=== PATIENT | male | born 1980 | race Caucasian/White ===

== ENCOUNTER 2019-12-01 07:20 | Emergency (ER) | payer MEDICARE, MEDICAID ==
[~2019-12-01] VITALS: Ht 182.8 cm; Wt 98.6 kg
[2019-12-01] MEDS ORDERED: morphine INJ 10 MG/ML 1ML (SYR OR VIAL) IVP STA (07:39)
[2019-12-01] MEDS ORDERED: LACTATED RINGERS 1,000 ML IV ONE (07:41)
[2019-12-01] MEDS ORDERED: LIDOCAINE UROJET 2% GEL 10 ML PKG TOP ONE (07:45)
[2019-12-01] MEDS ORDERED: ONDANSETRON 4 MG/2 ML (SDV) Z0FRAN IVP ONE ×2 (07:45→08:00)
[2019-12-01] MEDS ORDERED: PANTOPRAZOLE 40 MG (PROTONIX) VIAL IV ONE (07:45)
--- NOTE | 2019-12-01 07:51 | ED Abdominal Pain ---
General Chief Complaint: - Urinary Stated Complaint: ABD PAIN Nursing Triage Note: AMB TO ED REPORTS 2 DAYS AGO WAS SEEN AT [facility] FOR URINARY RETENTION. CATH PLACED. LAST NIGHT PATIENT STATES IT CAME HALF WAY OUT AND HE PULLED IT THE REST OF THE WAY OUT. Sepsis Screen: No Definite Risk Source of Information: Patient Exam Limitations: No Limitations History of Present Illness Date Seen by Provider: Dec 01, 2019 Time Seen by Provider: 07:28 Initial Comments Patient presents ER by private conveyance from a family member's home where he was staying the night it is anticipated going to graduation today but has had progressively worsening abdominal pain left side for the past 2 days. He is having nausea without vomiting. No diarrhea or bloody stools but he has a history of presumed Crohn's disease being worked up by gastroenterology at [facility]. His primary care is at [facility]. He completed a course of steroids last week. He also has chronic neck and back problems for which his primary care doctor gave him a prescription for hydrocodone recently. After he took the hydrocodone he states he had worsening prostatism with urinary retention only able to pass about 2 ounces of urine. He already has a history of prostatism and has had partial resection by urology at [facility]. He went to the ER and they placed a Morris catheter and leg bag. He's had to use straight catheter's for several years now because of UTI secondary to urinary retention. He came to [place] for a graduation ceremony today and when he was sleeping on a couch the accident dislodged the 14 Persian Morris catheter. He says he feels like his bladder is distended and full of urine but is also having 8 out of 10 pain just left of his umbilicus which she associates with his Crohn's. He says the diagnosis is not certain of the urologist thinks that his Crohn's based on endoscopy. He is not on antibiotics or steroids at this time. No fevers chills cough shortness of breath. He's had appendectomy and single orchiectomy in the past. Patient states fentanyl does not help but he has tolerated morphine and Dilaudid works very well. Allergies and Home Medications Allergies Coded Allergies: Penicillins (Verified Allergy, Unknown, 12/01/19) fentanyl (Verified Allergy, Unknown, 12/01/19) sulfamethoxazole (Verified Allergy, Unknown, 12/01/19) tramadol (Verified Allergy, Unknown, 12/01/19) trimethoprim (Verified Allergy, Unknown, 12/01/19) Home Medications Loperamide HCl 2 Mg Tablet, 2 MG PO Q4H PRN for DIARRHEA Prescribed by: RHETT IBARRA on 12/01/19 0824 Ondansetron 4 Mg Tab.rapdis, 4 MG PO Q6H PRN for NAUSEA/VOMITING Prescribed by: RHETT IBARRA on 12/01/19 0824 Tamsulosin HCl 0.4 Mg Cap, 0.4 MG PO DAILY Prescribed by: RHETT IBARRA on 12/01/19 08 Patient Home Medication List Home Medication List Reviewed: Yes Review of Systems Review of Systems Constitutional: No chills, No diaphoresis EENTM: No Blurred Vision, No Double Vision Respiratory: Denies Cough, Denies Shortness of Air Cardiovascular: Denies Chest Pain, Denies Lightheadedness Gastrointestinal: Denies Constipated, Denies Vomiting Genitourinary: Denies Discharge, Denies Drainage Musculoskeletal: see HPI, back pain; No joint pain Skin: No pruritus, No rash Psychiatric/Neurological: Denies Headache, Denies Numbness All Other Systems Reviewed Negative Unless Noted: Yes Past Irfbzir-Rduqjq-Peiufl Hx Patient Social History Alcohol Use: Denies Use Recreational Drug Use: No Recent Foreign Travel: No Contact w/Someone Who Travel: No Recent Infectious Disease Expo: No Physical Exam Vital Signs Vital Signs - First Documented 12/01/19 07:24 Temp 36.7 Pulse 87 Resp 18 B/P (MAP) 149/80 (103) Pulse Ox 100 O2 Delivery Room Air Capillary Refill : Less Than 3 Seconds Height/Weight/BMI Height: '" Weight: lbs. oz. kg; 29.00 BMI Method: General Appearance: WD/WN, mild distress HEENT: PERRL/EOMI, pharynx normal Neck: full range of motion, normal inspection Respiratory: lungs clear, normal breath sounds, no respiratory distress, no accessory muscle use Cardiovascular: normal peripheral pulses, regular rate, rhythm Peripheral Pulses: 2+ Radial Pulses (R), 2+ Radial Pulses (L) Gastrointestinal: normal bowel sounds, soft, tenderness (epigastric and left side upper quadrant) Extremities: normal range of motion, normal inspection, normal capillary refill Neurologic/Psychiatric: alert, normal mood/affect, oriented x 3 Skin: normal color, warm/dry Progress/Results/Core Measures Results/Orders Lab Results Laboratory Tests Test 12/01/19 07:43 12/01/19 08:11 Range/Units White Blood Count 8.5 4.3-11.0 10^3/uL Red Blood Count 4.90 4.35-5.85 10^6/uL Hemoglobin 14.7 13.3-17.7 G/DL Hematocrit 42 40-54 % Mean Corpuscular Volume 86 80-99 FL Mean Corpuscular Hemoglobin 30 25-34 PG Mean Corpuscular Hemoglobin Concent 35 32-36 G/DL Red Cell Distribution Width 14.7 H 10.0-14.5 % Platelet Count 303 130-400 10^3/uL Mean Platelet Volume 9.9 7.4-10.4 FL Neutrophils (%) (Auto) 58 42-75 % Lymphocytes (%) (Auto) 31 12-44 % Monocytes (%) (Auto) 10 0-12 % Eosinophils (%) (Auto) 1 0-10 % Basophils (%) (Auto) 0 0-10 % Neutrophils # (Auto) 4.9 1.8-7.8 X 10^3 Lymphocytes # (Auto) 2.6 1.0-4.0 X 10^3 Monocytes # (Auto) 0.8 0.0-1.0 X 10^3 Eosinophils # (Auto) 0.1 0.0-0.3 10^3/uL Basophils # (Auto) 0.0 0.0-0.1 10^3/uL Erythrocyte Sedimentation Rate 11 0-15 MM/HR Sodium Level 140 135-145 MMOL/L Potassium Level 3.8 3.6-5.0 MMOL/L Chloride Level 109 H 98-107 MMOL/L Carbon Dioxide Level 19 L 21-32 MMOL/L Anion Gap 12 5-14 MMOL/L Blood Urea Nitrogen 11 7-18 MG/DL Creatinine 1.27 0.60-1.30 MG/DL Estimat Glomerular Filtration Rate > 60 BUN/Creatinine Ratio 9 Glucose Level 104 70-105 MG/DL Calcium Level 9.2 8.5-10.1 MG/DL Corrected Calcium 9.0 8.5-10.1 MG/DL Total Bilirubin 0.5 0.1-1.0 MG/DL Aspartate Amino Transf (AST/SGOT) 35 H 5-34 U/L Alanine Aminotransferase (ALT/SGPT) 45 0-55 U/L Alkaline Phosphatase 85 40-136 U/L C-Reactive Protein High Sensitivity 0.31 0.00-0.50 MG/DL Total Protein 7.4 6.4-8.2 GM/DL Albumin 4.3 3.2-4.5 GM/DL Urine Color YELLOW Urine Clarity CLEAR Urine pH 5.5 5-9 Urine Specific N[place]rop >=1.030 1.016-1.022 Urine Protein NEGATIVE NEGATIVE Urine Glucose (UA) NEGATIVE NEGATIVE Urine Ketones NEGATIVE NEGATIVE Urine Nitrite NEGATIVE NEGATIVE Urine Bilirubin NEGATIVE NEGATIVE Urine Urobilinogen 0.2 < = 1.0 MG/DL Urine Leukocyte Esterase NEGATIVE NEGATIVE Urine RBC (Auto) NEGATIVE NEGATIVE Urine RBC NONE /HPF Urine WBC 2-5 /HPF Urine Crystals NONE /LPF Urine Bacteria MODERATE H /HPF Urine Casts NONE /LPF Urine Mucus LARGE H /LPF Urine Culture Indicated NO Urine Opiates Screen POSITIVE H NEGATIVE Urine Oxycodone Screen NEGATIVE NEGATIVE Urine Methadone Screen NEGATIVE NEGATIVE Urine Propoxyphene Screen NEGATIVE NEGATIVE Urine Barbiturates Screen NEGATIVE NEGATIVE Ur Tricyclic Antidepressants Screen NEGATIVE NEGATIVE Urine Phencyclidine Screen NEGATIVE NEGATIVE Urine Amphetamines Screen NEGATIVE NEGATIVE Urine Methamphetamines Screen NEGATIVE NEGATIVE Urine Benzodiazepines Screen POSITIVE H NEGATIVE Urine Cocaine Screen NEGATIVE NEGATIVE Urine Cannabinoids Screen POSITIVE H NEGATIVE My Orders Orders - RHETT IBARRA Ua Culture If Indicated (12/01/19 07:23) Cbc With Automated Diff (12/01/19 07:39) Comprehensive Metabolic Panel (12/01/19 07:39) Hs C Reactive Protein (12/01/19 07:39) Erythrocyte Sedimentation Rate (12/01/19 07:39) Catheter(Urinary) Insert & Ass 03,15 (12/01/19 07:39) Lidocaine 2% (Urojet) (Xylocaine Urojet) (12/01/19 07:45) Morphine Injection (Morphine Injection (12/01/19 07:39) Pantoprazole Injection (Protonix Injecti (12/01/19 07:45) Ct Abdomen/Pelvis W (12/01/19 07:39) Ed Iv/Invasive Line Start (12/01/19 07:41) Lactated Ringers (Lr 1000 Ml Iv Solution (12/01/19 07:41) Ondansetron Injection (Zofran Injectio (12/01/19 07:45) Ondansetron Injection (Zofran Injectio (12/01/19 08:00) Iohexol Injection (Omnipaque 350 Mg/Ml 1 (12/01/19 08:15) Ns (Ivpb) (Sodium Chloride 0.9% Ivpb Bag (12/01/19 08:15) Catheter(Urinary) Insert & Ass 03,15 (12/01/19 08:18) Ua Culture If Indicated (12/01/19 08:18) Drug Screen Stat (Urine) (12/01/19 08:33) Dicyclomine Capsule (Bentyl Capsule) (12/01/19 09:15) Methylprednisolone Sod Succ (Solu-Medrol (12/01/19 09:15) Medications Given in ED Current Medications Medications Dose Ordered Sig/Joshua Route Start Time Stop Time Status Last Admin Dose Admin Iohexol 100 ml ONCE ONCE IV 12/01/19 08:15 12/01/19 08:16 DC 12/01/19 08:29 100 ML Lactated Ringer's 1,000 ml @ 0 mls/hr Q0M ONCE IV 12/01/19 07:41 12/01/19 07:42 DC 12/01/19 07:59 1,000 MLS/HR Lidocaine HCl 10 ml ONCE ONCE TOP 12/01/19 07:45 12/01/19 07:46 DC 12/01/19 07:59 10 ML Ondansetron HCl 8 mg ONCE ONCE IVP 12/01/19 08:00 12/01/19 08:01 DC 12/01/19 07:55 8 MG Pantoprazole 40 mg ONCE ONCE IV 12/01/19 07:45 12/01/19 07:46 DC 12/01/19 07:57 40 MG Sodium Chloride 80 ml ONCE ONCE IV 12/01/19 08:15 12/01/19 08:16 DC 12/01/19 08:29 80 ML Vital Signs/I&O 12/01/19 07:24 Temp 36.7 Pulse 87 Resp 18 B/P (MAP) 149/80 (103) Pulse Ox 100 O2 Delivery Room Air Blood Pressure Mean: 103 Progress Progress Note #1: Time: 07:54 Progress Note IV established, 1 L of lactated Ringer's and plan to get a scan of his abdomen and pelvis. He has aseptic vital signs but because of his abdominal tenderness and history of Crohn's want to rule out abscess or fistula or other worrisome progressive disease. His urinary retention has prompted us to place a Morris catheter to drain his bladder and will probably set him up with a leg bag. We'll use Urojet. Morphine 4 mg and Zofran 8 mg as well as pantoprazole 40 mg for his symptoms. He he denies chronic opiate use. He says he's tolerated morphine in the past. Plan to also provide him with a couple weeks prescription for Flomax. Prescription monitoring software online demonstrates the patient has been prescribed 6 rounds of 60 tablets of hydrocodone 5/325 from the same provider. He is also had 7 separate scripts filled for alprazolam 0.5 mg 90 tablets each from the same provider. Before that he has multiple scripts for hydrocodone and other benzos from different providers filled at different pharmacies. This is inconsistent with the story he gave us initially where he implied that he rarely takes hydrocodone and just recently discovered that taking hydrocodone causes his prostate swell worsening his urinary retention. After placing Morris catheter we obtained return of about 50 cc of clear yellow urine. Progress Note #2: Time: 09:09 Progress Note Patient states he has had 4 episodes of diarrhea already this morning. Plan to give him Bentyl as well as a prescription for loperamide try. Plan to start him on some steroids for what looks like focal, patchy inflammatory appearance on CT. Very well could be consistent with Crohn so we'll put him on some budesonide have her follow-up with primary care. Mild ileus. Liquid diet would be appropriate for now. Should be tolerable to treat at home. Diagnostic Imaging Diagonstic Imaging: CT Plain Films/CT/US/NM/MRI: abdomen, pelvis Comments NAME: [facility] REC#: [id number] PT STATUS: REG ER : 1980 PHYSICIAN: RHETT IBARRA MD ADMIT DATE: 12/01/19/ER Draft Date of Exam:12/01/19 CT ABDOMEN/PELVIS W PROCEDURE: CT abdomen and pelvis with contrast. TECHNIQUE: Multiple contiguous axial images were obtained through the abdomen and pelvis after administration of intravenous contrast. Auto Exposure Controls were utilized during the CT exam to meet ALARA standards for radiation dose reduction. INDICATION: Abdominal pain, Crohn's disease. COMPARISON: None available. FINDINGS: The visualized lung bases are clear. Diffusely decreased density of the liver, consistent with fatty infiltration of the liver. Focal fatty sparing is noted adjacent to the gallbladder fossa. Liver is otherwise unremarkable. Spleen is unremarkable. Splenule is present. The adrenal glands are unremarkable. The gallbladder is unremarkable. The pancreas is unremarkable. The bilateral kidneys and ureters are unremarkable. No aneurysmal dilatation of the abdominal aorta. Morris catheter is present within a decompressed urinary bladder. Gas is present within the urinary bladder. Mural thickening of the ascending and descending colon is noted extending into the proximal sigmoid colon. Very minimal fat stranding is suggested associated with the rectosigmoid junction. The terminal ileum demonstrates mild mural thickening. No evidence of acute appendicitis. Loops of proximal small bowel are mildly dilated measuring up to 3.5 cm within the central upper abdomen. This is associated with mild mural thickening. No discrete transition point. No significant adenopathy, free air, or free fluid within the abdomen or pelvis. Stimulator device is present with the battery pack overlying the right gluteal region with leads extending into the chest though not completely included within the [id number]. No acute osseous abnormality. IMPRESSION: Scattered regions of mural thickening involving the colon, terminal ileum, and proximal jejunum. Findings are favored related to reported history of Crohn's disease. Mildly focally dilated loops of small bowel within the midline upper abdomen without discrete transition point. This may relate to focal ileus secondary to inflammation. Fatty infiltration of the liver. Morris catheter within a decompressed urinary bladder. Dictated on workstation # [id number] Dict: 12/01/19 0836 Trans: 12/01/19 0847 [id number] Interpreted by: BIBI CURRY MD Electronically signed by: Reviewed: Reviewed by Me Departure Impression Primary Impression: Crohn's colitis Qualified Codes: K50.10 - Crohn's disease of large intestine without complications Additional Impressions: Ileus Urinary retention due to benign prostatic hyperplasia Disposition: HOME, SELF-CARE Condition: Stable Departure-Patient Inst. Decision time for Depature: 09:23 Referrals: NO,LOCAL PHYSICIAN (PCP/Family) Primary Care Physician Patient Instructions: Crohn's Disease (DC), Urinary Retention Add. Discharge Instructions: A Morris Catheter was placed for your urinary retention. Plan to follow up with primary care in the next week to have it removed. Alternatively you may follow- up with your urologist. You appear to be having a Crohn's colitis episode. We were going to start you on budesonide once daily to help get it back in remission. If you have nausea you may take ondansetron one tablet under the tongue every 6 hours as needed. If you have pain you may use the pain medications prescribed to use as ordered. If you have diarrhea and/or pain you may try the Bentyl 20 mg every 6 hours as needed. You may also use loperamide 2 mg every 4 hours as necessary for loose, watery stools. Until your pain and nausea improve you should stick to a liquid diet and only slowly increase that to soft foods as your symptoms improve. Start taking Flomax once a day at night until after the catheter is out. All discharge instructions reviewed with patient and/or family. Voiced understanding. Scripts Dicyclomine HCl (Dicyclomine HCl) 20 Mg Tablet 20 MG PO Q6H PRN for PAIN-BREAKTHROUGH for 7 Days, #30 TAB 0 Refills Prov: RHETT IBARRA 12/01/19 Budesonide (Budesonide EC) 3 Mg Capdr...er 3 MG PO DAILY for 14 Days, #14 CAP 0 Refills Prov: RHETT IBARRA 12/01/19 Loperamide HCl (Loperamide) 2 Mg Tablet 2 MG PO Q4H PRN for DIARRHEA for 7 Days, #30 TAB 0 Refills Prov: RHETT IBARRA 12/01/19 Ondansetron (Ondansetron Odt) 4 Mg Tab.rapdis 4 MG PO Q6H PRN for NAUSEA/VOMITING, #20 TAB 0 Refills Prov: RHETT IBARRA 12/01/19 Tamsulosin HCl (Flomax) 0.4 Mg Cap 0.4 MG PO DAILY for 14 Days, #14 CAP 0 Refills Prov: RHETT IBARRA 12/01/19 RHETT IBARRA Dec 01, 2019 07:51
[2019-12-01 07:54] LABS: BASOPHILS % (AUTO) 0 % (0-10); EOSINOPHILS # (AUTO) 0.1 10^3/uL (0.0-0.3); EOSINOPHILS % (AUTO) 1 % (0-10); HEMATOCRIT 42 % (40-54); HEMOGLOBIN 14.7 G/DL (13.3-17.7); LYMPHOCYTES # (AUTO) 2.6 X 10^3 (1.0-4.0); LYMPHOCYTES % (AUTO) 31 % (12-44); MEAN CORPUSCULAR HEMOGLOBIN 30 PG (25-34); MEAN CORPUSCULAR HGB CONC 35 G/DL (32-36); MEAN CORPUSCULAR VOLUME 86 FL (80-99); MEAN PLATELET VOLUME 9.9 FL (7.4-10.4); MONOCYTES # (AUTO) 0.8 X 10^3 (0.0-1.0); MONOCYTES % (AUTO) 10 % (0-12); NEUTROPHILS # (AUTO) 4.9 X 10^3 (1.8-7.8); NEUTROPHILS % (AUTO) 58 % (42-75); PLATELET COUNT 303 10^3/uL (130-400); RED CELL DISTRIBUTION WIDTH 14.7 % (10.0-14.5); WHITE BLOOD COUNT 8.5 10^3/uL (4.3-11.0)
[2019-12-01 08:03] LABS: ALBUMIN 4.3 GM/DL (3.2-4.5); CHLORIDE 109 MMOL/L (98-107); POTASSIUM 3.8 MMOL/L (3.6-5.0); SODIUM 140 MMOL/L (135-145)
[2019-12-01 08:04] LABS: CALCIUM 9.2 MG/DL (8.5-10.1)
[2019-12-01 08:06] LABS: GLUCOSE 104 MG/DL (70-105); TOTAL PROTEIN 7.4 GM/DL (6.4-8.2)
[2019-12-01 08:07] LABS: BILIRUBIN,TOTAL 0.5 MG/DL (0.1-1.0); CARBON DIOXIDE 19 MMOL/L (21-32)
[2019-12-01 08:09] LABS: ALKALINE PHOSPHATASE 85 U/L (40-136)
[2019-12-01 08:10] LABS: CREATININE SERUM 1.27 MG/DL (0.60-1.30); GFR ESTIMATED > 60
[2019-12-01 08:11] LABS: BUN/CREATININE RATIO 9
[2019-12-01 08:12] LABS: ALANINE AMINOTRANSFERASE 45 U/L (0-55)
[2019-12-01] MEDS ORDERED: NS 100 ML (IVPB) BAG IV ONE (08:15)
[2019-12-01] MEDS ORDERED: IOHEXOL 350 MG/ML 100 ML (OMNIPAQUE 350) VIAL IV ONE (08:15)
[2019-12-01 08:17] LABS: BILIRUBIN,URINE NEGATIVE (NEGATIVE); CLARITY,URINE CLEAR; COLOR,URINE YELLOW; GLUCOSE, URINE (UA) NEGATIVE (NEGATIVE); KETONES,URINE NEGATIVE (NEGATIVE); LEUKOCYTE ESTERASE ,URINE NEGATIVE (NEGATIVE); NITRITE,URINE NEGATIVE (NEGATIVE); PH,URINE 5.5 (5-9); PROTEIN,URINE NEGATIVE (NEGATIVE)
[2019-12-01] MEDS ORDERED: TMSL.4C PO (08:24)
[2019-12-01] MEDS ORDERED: ONDA4TAB11 PO (08:24)
[2019-12-01] MEDS ORDERED: LOPE2TAB34 PO (08:24)
[2019-12-01 08:33] LABS: ERYTHROCYTE SEDIMENTATION RATE 11 MM/HR (0-15)
[2019-12-01] MEDS ORDERED: HYDR-83 (08:44)
[2019-12-01] MEDS ORDERED: CITA10TA7 (08:44)
[2019-12-01] MEDS ORDERED: ALPR0.5T7 (08:44)
--- NOTE | 2019-12-01 08:47 | Diagnostic Imaging Report ---
PROCEDURE: CT abdomen and pelvis with contrast. TECHNIQUE: Multiple contiguous axial images were obtained through the abdomen and pelvis after administration of intravenous contrast. Auto Exposure Controls were utilized during the CT exam to meet ALARA standards for radiation dose reduction. INDICATION: Abdominal pain, Crohn's disease. COMPARISON: None available. FINDINGS: The visualized lung bases are clear. Diffusely decreased density of the liver, consistent with fatty infiltration of the liver. Focal fatty sparing is noted adjacent to the gallbladder fossa. Liver is otherwise unremarkable. Spleen is unremarkable. Splenule is present. The adrenal glands are unremarkable. The gallbladder is unremarkable. The pancreas is unremarkable. The bilateral kidneys and ureters are unremarkable. No aneurysmal dilatation of the abdominal aorta. Morris catheter is present within a decompressed urinary bladder. Gas is present within the urinary bladder. Mural thickening of the ascending and descending colon is noted extending into the proximal sigmoid colon. Very minimal fat stranding is suggested associated with the rectosigmoid junction. The terminal ileum demonstrates mild mural thickening. No evidence of acute appendicitis. Loops of proximal small bowel are mildly dilated measuring up to 3.5 cm within the central upper abdomen. This is associated with mild mural thickening. No discrete transition point. No significant adenopathy, free air, or free fluid within the abdomen or pelvis. Stimulator device is present with the battery pack overlying the right gluteal region with leads extending into the chest though not completely included within the [id number]. No acute osseous abnormality. IMPRESSION: Scattered regions of mural thickening involving the colon, terminal ileum, and proximal jejunum. Findings are favored related to reported history of Crohn's disease. Mildly focally dilated loops of small bowel within the midline upper abdomen without discrete transition point. This may relate to focal ileus secondary to inflammation. Fatty infiltration of the liver. Morris catheter within a decompressed urinary bladder. Dictated by: Dictated on workstation # [id number]
[2019-12-01 08:52] LABS: AMPHETAMINE SCREEN, URINE NEGATIVE (NEGATIVE); BENZODIAZEPINES SCREEN URINE POSITIVE (NEGATIVE); CANNABINOID SCREEN, URINE POSITIVE (NEGATIVE); COCAINE SCREEN URINE NEGATIVE (NEGATIVE); METHAMPHETAMINE SCREEN URINE S NEGATIVE (NEGATIVE)
[2019-12-01 08:53] LABS: BARBITURATE SCREEN URINE NEGATIVE (NEGATIVE); METHADONE STAT NEGATIVE (NEGATIVE); OPIATE SCREEN URINE POSITIVE (NEGATIVE); OXYCODONE STAT NEGATIVE (NEGATIVE); PROPOXYPHENE STAT NEGATIVE (NEGATIVE); TRICYCLIC ANTIDEPRESSANTS SCRE NEGATIVE (NEGATIVE)
--- NOTE | 2019-12-01 08:53 | NUR ---
CALLED TO ROOM PATIENT REQUESTION MORE PAIN MEDS. FLUIDS INFUSING WITHOUT PROBLEM. PACK DRAINING WITOUT PROBLEM.
[2019-12-01 08:56] LABS: BACTERIA,URINE MODERATE /HPF
[2019-12-01] MEDS ORDERED: DICYCLOMINE 10 MG (BENTYL) CAP PO ONE (09:15)
[2019-12-01] MEDS ORDERED: methylPREDNISolone 125 MG (Solu-MEDROL) VIAL IVP ONE (09:15)
[2019-12-01] MEDS ORDERED: DICY20TA10 PO (09:33)
[2019-12-01] MEDS ORDERED: BUDE3CAP5 PO (09:33)
--- NOTE | 2019-12-01 09:54 | NUR ---
PATIENT DECIDED HE WANTED PACK REMOVED ON DISCHARGE APX 200CC IN PACK BAG. PACK REMOVED WITHOUT PROBLEM.
--- NOTE | 2019-12-01 09:57 | NUR ---
DR IBARRA ORDERD BENADRYL BEFORE DISCHARGE.
[2019-12-01] MEDS ORDERED: diphenhydrAMINE 25 MG TAB (BENADRYL) PO ONE (10:00)
[2019-12-01 10:03] VITALS: BP 129/96
== END 2019-12-01 10:03 | disposition home or self-care (01) ==
LOC: ER 07:22
DX: K50.10 Crohn's disease of large intestine without complications (principal); K56.7 Ileus, unspecified; N40.1 Benign prostatic hyperplasia with lower urinary tract symptoms; R33.8 Other retention of urine; G89.29 Other chronic pain; M54.2 Cervicalgia; M54.9 Dorsalgia, unspecified; Z88.0 Allergy status to penicillin; Z88.5 Allergy status to narcotic agent; Z88.2 Allergy status to sulfonamides; Z88.1 Allergy status to other antibiotic agents
CPT/HCPCS: 36415; 51702; 74177; 80053; 80306; 81000; 85025; 85652; 86141